=== PATIENT | female | born 1960 | race Two or more races ===

== ENCOUNTER 2022-10-08 07:58 | Outpatient (AMBR) | payer MEDICARE, MEDICAID, SELFPAY ==
--- NOTE | 2022-10-08 08:34 | PT.OIERPT ---
PT OP Initial Eval Patient Information Visit Reasons: RT knee pain Medical Diagnosis: M23.91 Treatment Dx #1: Right Knee Pain Treatment Dx #2: Right Knee Mobility Deficits Start of Care: 10/08/22 Date of Onset: Jun 2022 Initial Assessment Subjective Pt is a 62 y/o female reports of right knee pain (7/10) worsening after her fall in Jun 2022. Pt's xray showed moderate to advanced OA no MRI yet. Pt has limitation with walking, standing, chores, self care, balance, stairs, steps, squatting, and performing recreational activities. Objective Right Knee AROM: 0 deg to 120 deg with pain Right Knee MMTs Quads: 3/5 Hs: 3/5 Right Hip MMTs Glute Med: 3/5 Glute Max: 3/5 SLS: NT Special Test (+) Donalds Assessment Pt demonstrate right knee pain and mobility deficits leading to decline function and difficulty with ADLs. Pt will attempt physical therapy if pain persist Pt will be refer back to MD for further consultation Short Term and Dining [employer] Goals 1) Increase right knee AROM WNL in 6 wks to be able to perform chores 2) Increase right knee MMTs grossly to 4/5 in 6 wks to be able to perform stairs and steps 3) Increase right hip MMTs grossly to 4-/5 in 6 wks to be able to walk more than 45 mins 4) Decrease knee pain to 2/10 in 6 wks to be able to sit and stand more than 45 mins 5) Increase SLS to 15 sec in 6 wks to be able to perform self care activties 6) Indep with HEP Treatment Plan 1) Manual Therapy 2) Therapeutic Activities 3) Therapeutic Exercises 4) Modalities (ice, heat) 5) Balance Training 6) Gait Training Frequency and Duration 2 x wk for 6 wks Certification Dates: 10/08/22 to 01/08/23
== END 2022-11-02 23:59 | disposition home or self-care (01) ==
PROVIDERS: Referring Provider Orthopaedic Surgery; Visit Provider Orthopaedic Surgery

== ENCOUNTER → 2024-10-12 | Outpatient (CLI) | payer MEDICARE, MEDICAID, SELFPAY ==
--- NOTE | 2024-10-12 | XR_ITS ---
Examination: Bone densitometry Date and time of exam:October 12, 2024 1258 hrs. Indications: Menopause age 57, diabetic Technique: Lumbar spine and hip total bone mineralization values of an calculated. Peak reference and age match control results have been displayed. Findings: Lumbar spine total bone mineralization is1.344 gm/cm2. This is 2.7 standard deviations above peak reference. This is 4.3 standard deviations above age-matched controls. Hip total bone mineralization is 1.088 gm/cm2 This is 0.9 standard deviations above peak reference. This is 2.0 standard deviations above age-matched controls Impression: There is normal mineralization based on lumbar spine measurements. There is normal mineralization based on hip measurements
== END | disposition home or self-care (01) ==
LOC: CDIM 12:15
PROVIDERS: PCP Nurse Practitioner Family; Referring Provider Nurse Practitioner Family; Visit Provider Nurse Practitioner Family
DX: M81.0 Age-related osteoporosis without current pathological fracture (principal)
CPT/HCPCS: 77080